=== PATIENT | male | born 1960 | race Asian ===

== ENCOUNTER 2022-10-22 22:16 | Emergency (ER) | payer OTHER ==
[~2022-10-22] VITALS: Ht 177.8 cm; Wt 79.5 kg
[~2022-10-22 22:16] MED LIST: MULT-1081 PO
[2022-10-23] MEDS ORDERED: KETOROLAC TROMETHAMINE 60 MG/2 ML VIAL IM ONE (01:15)
[2022-10-23] MEDS ORDERED: IBUP-1492 PO (04:03)
[2022-10-23 04:52] VITALS: BP 148/77
== END 2022-10-23 04:53 | disposition home or self-care (01) ==
LOC: EMS 23:33
DX: S16.1XXA Strain of muscle, fascia and tendon at neck level, initial encounter (principal); V89.2XXA Person injured in unspecified motor-vehicle accident, traffic, initial encounter; Y93.89 Activity, other specified; Y92.89 Other specified places as the place of occurrence of the external cause; Y99.8 Other external cause status
CPT/HCPCS: 99285; 96372; 72125; 71045; J1885